=== PATIENT | female | born 1940 | race Caucasian/White ===

== ENCOUNTER → 2017-09-21 | Outpatient (CLI) | payer OTHER ==
[~2017-09-21] MED LIST: ALENDRONATE; CALCIUM; L-THYROXINE; NORCO 5-325 TA1 EACH PO; PHENERGAN 25 MG25 M1 PO
== END ==
LOC: M.MRI 09-14 08:57
DX: K31.84 Gastroparesis (principal); R11.2 Nausea with vomiting, unspecified; R63.4 Abnormal weight loss; K83.8 Other specified diseases of biliary tract; R93.5 Abnormal findings on diagnostic imaging of other abdominal regions, including retroperitoneum

== ENCOUNTER → 2017-12-16 | Outpatient (CLI) | payer OTHER | LOC: M.ULTRA 14:45 | DX: M79.605 Pain in left leg (principal) ==

== ENCOUNTER → 2018-01-07 | Outpatient (CLI) | payer OTHER | LOC: M.RAD 09:42 | DX: M19.032 Primary osteoarthritis, left wrist (principal) ==

== ENCOUNTER → 2018-04-26 | Outpatient (CLI) | payer OTHER | LOC: M.CT 07:26 | DX: I77.810 Thoracic aortic ectasia (principal); J84.10 Pulmonary fibrosis, unspecified; I70.0 Atherosclerosis of aorta; J43.9 Emphysema, unspecified; J98.4 Other disorders of lung; E03.9 Hypothyroidism, unspecified; M81.0 Age-related osteoporosis without current pathological fracture ==

== ENCOUNTER → 2018-08-19 | Outpatient (CLI) | payer OTHER | LOC: M.RAD 08-18 10:30 | DX: Z12.31 Encounter for screening mammogram for malignant neoplasm of breast (principal) ==

== ENCOUNTER 2019-08-12 21:24 | Emergency (ER) | payer OTHER ==
[~2019-08-12] VITALS: Ht 157.5 cm; Wt 45.4 kg
[~2019-08-12 21:24] MED LIST changes: +ANORO ELLIPTA1 EACH INH; +CALCIUM 600 MG1 EAC2 PO; +FLONASE 0.05%50 MCG NARES; +LEVO-T75 MCG PO; +PRILOSEC2.5 MG PO; +PROLIA60 MG/1 ML SUBQ; +SINGULAIR 10 MG10 M1 PO
[2019-08-12] MEDS ORDERED: ANORO ELLIPTA1 EACH INH (21:37)
[2019-08-12] MEDS ORDERED: VENTOLIN HFA 1818 GM INH (21:38)
[2019-08-12 22:10] LABS: ABSOLUTE BASOPHILS 0.1 thou/uL (0.0-0.2); ABSOLUTE EOSINOPHILS 0.3 thou/uL (0.0-0.7); ABSOLUTE LYMPHOCYTES 0.7 thou/uL (0.8-5.3); ABSOLUTE MONOCYTES 0.9 thou/uL (0.0-1.2); ABSOLUTE NEUTROPHILS 10.5 thou/uL (1.6-8.1); EOSINOPHILS 2.4 %; HEMATOCRIT 33.9 % (37.0-47.0); HEMOGLOBIN 11.5 gm/dL (12.0-15.0); LYMPHOCYTES 5.8 %; MCH 28.3 pg (26.0-34.0); MCHC 34.1 g/dL (28.0-37.0); MCV 82.9 fL (80.0-100.0); MONOCYTES 7.5 %; MPV 6.5 fl. (7.2-11.1); NUCLEATED RBCS 0 /100WBC; PLATELET COUNT* 428 thou/uL (150-400); POLYS 83.3 %; RBC 4.08 mil/uL (4.20-5.00); WBC 12.6 thou/uL (4.0-11.0)
[2019-08-12 22:13] LABS: CALCIUM 8.9 mg/dL (8.5-10.1); CREATININE 0.6 mg/dL (0.6-1.3); POTASSIUM 4.7 mmol/L (3.5-5.1)
[2019-08-12 22:18] LABS: ALBUMIN 3.2 g/dL (3.4-5.0); TOTAL BILIRUBIN 0.3 mg/dL (<0.1-1.0); TOTAL PROTEIN 6.2 g/dL (6.4-8.2)
[2019-08-12 22:32] LABS: URINE BILIRUBIN NEGATIVE (Negative); URINE BLOOD NEGATIVE (Negative); URINE CLARITY CLEAR; URINE COLOR YELLOW; URINE GLUCOSE-RANDOM NEGATIVE (Negative); URINE KETONES NEGATIVE (Negative); URINE LEUKOCYTES-REFLEX NEGATIVE (Negative); URINE NITRITE-REFLEX NEGATIVE (Negative); URINE PROTEIN NEGATIVE (Negative); URINE SPECIFIC GRAVITY 1.015 (1.005-1.030); URINE UROBILINOGEN 0.2 E.U./dl (0.2-1.0)
[2019-08-13] MEDS ORDERED: TRAMADOL 50 MG50 MG PO (00:20)
[2019-08-13 00:43] VITALS: BP 135/80
--- NOTE | 2019-08-13 12:25 | EKG ---
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1940 Requested By: Mera Banegas Order Number: [id number] MD: Brandon Galdamez Measurements Intervals [place] Rate: 68 P: 65 RI: 132 QRS: -39 QRSD: 93 T: 34 QT: 396 QTc: 422 Interpretive Statements Sinus rhythm Left axis deviation Minimal ST elevation, anterior leads Baseline wander in lead(s) I,III,aVR,aVL No previous ECG available for comparison Electronically Signed On 08-13-2019 12:25:43 [employer]A [employer]Y HOUSE OPERATOR by Brandon Galdamez [email or web address] <ELECTRONICALLY SIGNED> By: Brandon Galdamez MD, [facility] 08/13/19 1225 56 Brandon Galdamez MD, [facility] /EPI
== END 2019-08-13 00:47 | disposition home or self-care (01) ==
LOC: M.ERS 21:24
PROVIDERS: Emergency Medicine
DX: S52.592A Other fractures of lower end of left radius, initial encounter for closed fracture (principal); E03.9 Hypothyroidism, unspecified; M81.0 Age-related osteoporosis without current pathological fracture; Z88.2 Allergy status to sulfonamides; Z88.7 Allergy status to serum and vaccine; W18.39XA Other fall on same level, initial encounter; Y93.89 Activity, other specified; Y92.89 Other specified places as the place of occurrence of the external cause; Y99.8 Other external cause status

== ENCOUNTER → 2019-08-16 | Day surgery (SDC) | payer OTHER ==
[~2019-08-16] MED LIST changes: +ASA81BEC PO; +AZITHROMYCIN500 MG PO; +CEFDINIR300 MG PO; +TRAMADOL 50 MG50 MG PO; +VENTOLIN HFA 1818 GM INH
[2019-08-16 09:13] LABS: HEMATOCRIT 36.2 % (37.0-47.0); HEMOGLOBIN 12.2 gm/dL (12.0-15.0); MCH 27.8 pg (26.0-34.0); MCHC 33.8 g/dL (28.0-37.0); MCV 82.1 fL (80.0-100.0); MPV 6.4 fl. (7.2-11.1); RBC 4.41 mil/uL (4.20-5.00); RDW-CV 16.6 % (10.5-14.5); WBC 11.5 thou/uL (4.0-11.0)
[2019-08-16 09:18] LABS: CALCIUM 8.8 mg/dL (8.5-10.1); CREATININE 0.5 mg/dL (0.6-1.3); POTASSIUM 4.6 mmol/L (3.5-5.1)
[2019-08-16 09:28] LABS: ALBUMIN 3.3 g/dL (3.4-5.0); TOTAL BILIRUBIN 0.3 mg/dL (<0.1-1.0); TOTAL PROTEIN 6.7 g/dL (6.4-8.2)
--- NOTE | 2019-08-16 09:44 | EKG ---
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
--- NOTE | 2019-08-18 14:06 | PATH ---
[address] [address] PATHOLOGY RPT PROCEDURE Name: ROSIE RENTERIA Room: [facility]#: [id number] Admission: 08/16/19 Date of : 42 Discharge: Report #: [id number] Path Case #: [id number] [facility] Accession Number: [id number] . 01 Material submitted: . pylorus - BIOPSY PRE PYLORIC AREA SUSPECT INTESTINAL METAPLASIA . 01 Clinical history: . Nausea vomitting Suspect intestina metaplasia . 02 Diagnosis: "Biopsy prepyloric area suspect intestinal metaplasia", biopsy: - Gastric antral-type mucosa with reactive gastropathy, mild acute and chronic inflammation and intestinal metaplasia; no dysplasia seen. - Negative H. pylori immunohistochemical stain (block A1); control reacted appropriately. (CLW/db; 08/18/2019) LBQ 08/18/2019 1044 Local . 02 Electronically signed: . Radha Villareal MD, Pathologist NPI- [id number] . 01 Gross description: . Received in formalin labeled "Rosie Renteria, biopsy pre-pyloric area: suspect intestinal metaplasia," are four segments of pale fernandes soft tissue measuring 0.6 x 0.5 x 0.2 cm in aggregate dimensions and ranging from 0.3 to 0.4 cm in maximum dimension. The specimen is submitted entirely in cassette A1. (DAC; 08/17/2019) XDC/XDC 08/17/2019 1228 Local . 02 Pathologist provided ICD-10: K31.9, K29.00, K29.50 . 02 CPT . 212019, [id number] Specimen Comment: A courtesy copy of this report has been sent to [phone], [phone] Specimen Comment: [phone] Specimen Comment: Report sent to and Performed at: [address] [id number] MD Sudeep Salmeron MD Phone: [phone] Performed at: 02 [place] [address] PATHOLOGY RPT PROCEDURE Name: ROSIE RENTERIA Room: [facility]#: [id number] Admission: 08/16/19 Date of : 42 Discharge: Report #: [id number] Path Case #: [id number] [address], [place] [id number] MD King Scales MD Phone: [phone]
== END | disposition home or self-care (01) ==
LOC: M.SUR
PROVIDERS: Internal Medicine Gastroenterology
DX: K29.50 Unspecified chronic gastritis without bleeding (principal); K29.00 Acute gastritis without bleeding; K31.9 Disease of stomach and duodenum, unspecified; K44.9 Diaphragmatic hernia without obstruction or gangrene; K21.0 Gastro-esophageal reflux disease with esophagitis; J44.9 Chronic obstructive pulmonary disease, unspecified; R11.2 Nausea with vomiting, unspecified; Z86.010 Personal history of colon polyps; Z85.828 Personal history of other malignant neoplasm of skin; Z79.899 Other long term (current) drug therapy; Z88.2 Allergy status to sulfonamides; Z79.82 Long term (current) use of aspirin

== ENCOUNTER 2019-08-19 15:21 | Inpatient (IN) | payer OTHER ==
[~2019-08-19] VITALS: Ht 157.5 cm; Wt 45.8 kg
--- NOTE | ~2019-08-19 | EEG ---
[address] [address] EEG STUDY REPORT Name: NIKA RENTERIA Room: [address]#: [id number] Admission: 08/19/19 Attend Phys: Jordan Palafox MD Discharge: 08/22/19 Date of : 42 Report #: [id number] THIS REPORT FOR: //name// CC: Jordan Levin DATE OF SERVICE: 08/22/2019 This patient is being evaluated for an episode of syncope. EEG was done by placing the electrode by standard 10-20 system of electrode placement. Both referential and sequential montages were used for recording. Background activity in this patient's EEG is about 10 Hz and 30 microvolts. This patient became drowsy and that is associated with bilateral slowing. Photic stimulation was unremarkable. Throughout the record, no active epileptiform activity was noticed. IMPRESSION: This patient's EEG is within normal limit. Thank you very much for this referral. By: 0853 0910Kaiser Amor MD /nt
--- NOTE | ~2019-08-19 | CON ---
[address] [address] CONSULTATION Name: NIKA RENTERIA Room: [address] IN .R.#: [id number] Admission: 08/19/19 Attend Phys: Jordan Palafox MD Discharge: Date of : 42 Report #: [id number] THIS REPORT FOR: //name// CC: Jordan Levin DATE OF SERVICE: 08/21/2019 HISTORY OF PRESENT ILLNESS: This is a 79-year-old female patient who gives a history that this patient had falls. She had multiple falls. She does not know why she had those falls. She believes she started smoking and that is what happened. She believes smoking induces her falls. There is no history to suggest cough, syncope in this patient. Review of system indicates she has smoked for a long time, then she stopped doing it, and started again. She does have multiple injuries secondary to fall. Nobody has noticed any tonic-clonic activity. REVIEW OF SYSTEM: A 14-point review of system is carried out. She has problem with the lungs. Her oxygen saturation is low. She does have some ophthalmology problems in the baseline. She denies any ENT, cardiac symptom associated with the present symptomatology. She denies any , musculoskeletal, constitutional, dermatological, hematological, psychiatric, throat, allergic symptom associated with present symptomatology. She had some question of chest pain. She was also having some hypoxia when the patient was admitted. PAST MEDICAL HISTORY: Positive for smoking and looks like she has increasing oxygen desaturation. FAMILY HISTORY: Negative for any early age stroke. SOCIAL HISTORY: She smokes. She drank alcohol long time ago, but does not drink any alcohol now. PHYSICAL EXAMINATION: Indicates that she is alert. She is responsive. She can follow simple command. Her speech, concentration, fund of knowledge and memory is at her baseline. Cranial nerve examination 2-12 does not appear to be showing any definite abnormality. Strength, sensation, reflexes and tone is symmetrical. There is no cerebellar sign. I could not look at the patient's fundus. She does appear to have rhonchi on both sides and is somewhat short of breath. Cardiac examinations appear unremarkable. Pulses are somewhat difficult to feel. There is no edema, cyanosis or jaundice. Blood pressure is 150/92, pulse is 70, and temperature is 97.9. LABORATORY DATA: Her white count is 10.9. Her sodium is only 130. GFR is pretty good at 81. [place] [address] CONSULTATION Name: NIKA RENTERIA [place] Room: [address]#: [id number] Admission: 08/19/19 Attend Phys: Jordan Palafox MD Discharge: Date of : 42 Report #: [id number] IMPRESSION: This patient is having multiple falls. I think the cause is most likely systemic because she does appear to have hypoxia and other pulmonary problem. She also has some hyponatremia, which could have contributed to her symptoms. She is a heavy smoker. In these circumstances, TIRE LAYER problems need to be excluded. The patient says that she will not do an MRI. I can do a CT angio, but looks like she just had CTA of the chest and I hate to give contrast again. One of the option will be that await for the present testing and then if carotid Doppler is okay and there is a reasonably good picture of vertebral, we might put her on antiplatelet therapy and send her home and get an MRI and MRA as an outpatient and open MRI. The other option will be to see if GFR is still good tomorrow, we can do a CT angiogram tomorrow. I discussed this with the patient and she wants to follow this plan and we will do that. By: 1146 1440Kaiser Amor MD /nt
[~2019-08-19 15:21] MED LIST changes: -ASA81BEC PO; -AZITHROMYCIN500 MG PO; -CEFDINIR300 MG PO
[2019-08-19 15:36] VITALS: BP 125/82
[2019-08-19 16:48] LABS: HEMATOCRIT 34.9 % (37.0-47.0); HEMOGLOBIN 11.7 gm/dL (12.0-15.0); MCH 27.6 pg (26.0-34.0); MCHC 33.5 g/dL (28.0-37.0); MCV 82.2 fL (80.0-100.0); MPV 6.7 fl. (7.2-11.1); NUCLEATED RBCS 0 /100WBC; PLATELET COUNT* 488 thou/uL (150-400); RBC 4.24 mil/uL (4.20-5.00); RDW-CV 16.5 % (10.5-14.5); WBC 16.2 thou/uL (4.0-11.0)
[2019-08-19 16:57] LABS: CALCIUM 9.5 mg/dL (8.5-10.1); CREATININE 0.6 mg/dL (0.6-1.3); POTASSIUM 4.5 mmol/L (3.5-5.1)
[2019-08-19 17:01] LABS: ALBUMIN 3.3 g/dL (3.4-5.0); TOTAL BILIRUBIN 0.3 mg/dL (<0.1-1.0); TOTAL PROTEIN 6.7 g/dL (6.4-8.2)
[2019-08-19 17:15] LABS: ABSOLUTE LYMPHOCYTES 0.6 thou/uL (0.8-5.3); ABSOLUTE MONOCYTES 0.6 thou/uL (0.0-1.2); ABSOLUTE NEUTROPHILS 14.9 thou/uL (1.6-8.1)
[2019-08-19 17:16] LABS: ANISOCYTOSIS Occasional; PLATELET ESTIMATE INCREASED
[2019-08-19 17:17] LABS: OVALOCYTES 1+
[2019-08-19 17:21] LABS: BURR CELLS 1+
[2019-08-19 19:52] VITALS: BP 118/59
[2019-08-19 20:00] VITALS: BP 123/83
[2019-08-20] VITALS: BP 102/64
[2019-08-20 04:00] VITALS: BP 101/64
[2019-08-20 08:00] VITALS: BP 106/72
[2019-08-20 11:59] LABS: CALCIUM 9.5 mg/dL (8.5-10.1); CREATININE 0.7 mg/dL (0.6-1.3); MAGNESIUM 2.2 mg/dL (1.8-2.4); POTASSIUM 3.9 mmol/L (3.5-5.1)
[2019-08-20 12:07] VITALS: BP 111/71
--- NOTE | 2019-08-20 15:38 | EKG ---
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1940 Requested By: Rosalia Alexander Order Number: [id number] MD: Buck Dc Measurements Intervals [place] Rate: 72 P: 59 OK: 130 QRS: -38 QRSD: 91 T: 16 QT: 400 QTc: 438 Interpretive Statements Sinus rhythm Probable left atrial enlargement Left axis deviation Anteroseptal infarct, age indeterminate Compared to ECG 08/16/2019 09:12:38 Myocardial infarct finding now present Electronically Signed On 08-20-2019 15:37:50 DROPPER TANK STORAGE by Buck Dc [email or web address] <ELECTRONICALLY SIGNED> By: Buck Dc MD, FACC 08/20/19 1537 1640 1640 Buck Dc MD, FACC /EPI
[2019-08-20 20:20] VITALS: BP 107/71
[2019-08-21] VITALS: BP 118/73
[2019-08-21 04:52] LABS: ABSOLUTE EOSINOPHILS 0.1 thou/uL (0.0-0.7); ABSOLUTE LYMPHOCYTES 1.6 thou/uL (0.8-5.3); ABSOLUTE MONOCYTES 1.2 thou/uL (0.0-1.2); BASOPHILS 0.4 %; EOSINOPHILS 1.2 %; HEMATOCRIT 29.6 % (37.0-47.0); HEMOGLOBIN 9.9 gm/dL (12.0-15.0); LYMPHOCYTES 14.8 %; MCH 27.5 pg (26.0-34.0); MCHC 33.3 g/dL (28.0-37.0); MCV 82.4 fL (80.0-100.0); MONOCYTES 10.6 %; MPV 6.6 fl. (7.2-11.1); NUCLEATED RBCS 0 /100WBC; PLATELET COUNT* 416 thou/uL (150-400); RBC 3.59 mil/uL (4.20-5.00); RDW-CV 16.6 % (10.5-14.5); WBC 10.9 thou/uL (4.0-11.0)
[2019-08-21 05:17] LABS: URINE BILIRUBIN NEGATIVE (Negative); URINE BLOOD NEGATIVE (Negative); URINE CLARITY CLEAR; URINE COLOR YELLOW; URINE GLUCOSE-RANDOM NEGATIVE (Negative); URINE KETONES NEGATIVE (Negative); URINE LEUKOCYTES NEGATIVE (Negative); URINE NITRITE NEGATIVE (Negative); URINE PROTEIN NEGATIVE (Negative); URINE UROBILINOGEN 0.2 E.U./dl (0.2-1.0)
[2019-08-21 07:00] VITALS: BP 150/92
[2019-08-21 11:45] VITALS: BP 103/69
--- NOTE | 2019-08-21 15:38 | 2DMMODE ---
[place] [address] 2 D/M-MODE ECHOCARDIOGRAM Name: NIKA RENTERIA Room: [address] [place] .R.#: [id number] Admission: 08/19/19 Attend Phys: Jordan Palafox, Discharge: Date of : 42 Date of Service: 08/21/19 1537 Report #: [id number] THIS REPORT FOR: //name// APPROVED REPORT Study performed: 08/21/2019 13:46:11 EXAM: Comprehensive 2D, Doppler, and color-flow Echocardiogram Patient Location: Bedside BSA: 1.45 HR: 70 bpm BP: 150/92 mmHg Other Information Study Quality: Fair Indications Dyspnea 2D Dimensions IVSd: 13.78 (7-11mm) LVOT Diam: 23.88 (18-24mm) LVDd: 35.18 mm PWd: 10.13 (7-11mm) Ascending Ao: 32.69 (22-36mm) LVDs: 29.09 (25-40mm) Aortic Root: 25.47 mm Volumes Left Atrial Volume (Systole) LA ESV Index: 16.40 mL/m2 Aortic Valve AoV Peak Dayday.: 0.96 m/s AO Peak Gr.: 3.71 mmHg LVOT Max P.18 mmHg AO Mean Gr.: 2.06 mmHg LVOT Mean P.52 mmHg LVOT Max V: 0.89 m/s AO V2 VTI: 16.05 cm LVOT Mean V: 0.56 m/s NIKOLAS (VTI): 3.70 cm2 LVOT V1 VTI: 13.26 cm Mitral Valve E/A Ratio: 0.58 MV Decel. Time: 161.61 ms MV E Max Dayday.: 0.30 m/s MV PHT: 46.87 ms MVA (PHT): 4.69 [place] [address] 2 D/M-MODE ECHOCARDIOGRAM Name: NIKA RENTERIA Room: [address] IN [facility]#: [id number] Admission: 08/19/19 Attend Phys: Jordan Palafox, Discharge: Date of : 42 Date of Service: 08/21/19 1537 Report #: [id number] TDI E/Lateral E': 3.33 E/Medial E': 2.73 Medial E' Dayday.: 0.11 m/s Lateral E' Dayday.: 0.09 m/s Pulmonary Valve PV Peak Dayday.: 0.86 m/s PV Peak Gr.: 2.98 mmHg Tricuspid Valve RAP Estimate: 5.00 mmHg TR Peak Gr.: 37.80 mmHg RVSP: 42.80 mmHg PA Pressure: 42.80 mmHg Left Ventricle The left ventricle is normal size. There is normal LV segmental wall motion. There is normal left ventricular wall thickness. Left ventricular systolic function is normal. The left ventricular ejection fraction is within the normal range. LVEF is 55-60%. Grade I - abnormal relaxation pattern. Right Ventricle The right ventricle is normal size. The right ventricular systolic function is normal. Atria The left atrium size is normal. The atrial septum is aneurysmal. The right atrium size is normal. Aortic Valve The aortic valve is normal in structure. No aortic regurgitation is present. There is no aortic valvular stenosis. Mitral Valve The mitral valve is normal in structure. Mild mitral regurgitation. No evidence of mitral valve stenosis. Tricuspid Valve The tricuspid valve is normal in structure. Moderate tricuspid regurgitation. estimated pa pressure 40 mm Hg Pulmonic Valve Pulmonic valve is not well visualized. There is no pulmonic valvular regurgitation[place] [address] 2 D/M-MODE ECHOCARDIOGRAM Name: NIKA RENTERIA Room: [address]#: [id number] Admission: 08/19/19 Attend Phys: Jordan Palafox, Discharge: Date of : 42 Date of Service: 08/21/19 1537 Report #: [id number] The aortic root is normal in size. IVC is normal in size and collapses >50% with inspiration. Pericardium There is no pericardial effusion. <Conclusion> LVEF is 55-60%. Mild mitral regurgitation. Moderate tricuspid regurgitation. estimated pa pressure 40 mm Hg <ELECTRONICALLY SIGNED> By: Brandon Galdamez MD, FACC 08/21/19 1537 153 153 Brandon Galdamez MD, FACC /INF
[2019-08-21 16:39] VITALS: BP 105/68
[2019-08-21 20:00] VITALS: BP 117/77
[2019-08-22] VITALS: BP 136/85
[2019-08-22 04:00] VITALS: BP 141/44
[2019-08-22 05:13] LABS: ABSOLUTE EOSINOPHILS 0.2 thou/uL (0.0-0.7); ABSOLUTE LYMPHOCYTES 1.6 thou/uL (0.8-5.3); ABSOLUTE NEUTROPHILS 6.4 thou/uL (1.6-8.1); BASOPHILS 0.5 %; EOSINOPHILS 2.1 %; HEMATOCRIT 29.6 % (37.0-47.0); HEMOGLOBIN 10.2 gm/dL (12.0-15.0); LYMPHOCYTES 17.3 %; MCH 28.1 pg (26.0-34.0); MCHC 34.4 g/dL (28.0-37.0); MCV 81.6 fL (80.0-100.0); MONOCYTES 10.4 %; MPV 6.4 fl. (7.2-11.1); NUCLEATED RBCS 0 /100WBC; PLATELET COUNT* 422 thou/uL (150-400); POLYS 69.7 %; RBC 3.63 mil/uL (4.20-5.00); RDW-CV 16.6 % (10.5-14.5); WBC 9.2 thou/uL (4.0-11.0)
[2019-08-22 05:32] LABS: CALCIUM 8.4 mg/dL (8.5-10.1); CREATININE 0.6 mg/dL (0.6-1.3); POTASSIUM 4.3 mmol/L (3.5-5.1)
[2019-08-22 07:00] VITALS: BP 126/55
[2019-08-22] MEDS ORDERED: CEFDINIR300 MG PO (10:39)
[2019-08-22] MEDS ORDERED: AZITHROMYCIN500 MG PO (10:39)
[2019-08-22 10:40] VITALS: BP 126/55
[2019-08-22] MEDS ORDERED: ASA81BEC PO (11:33)
[2019-08-22 13:04] VITALS: BP 126/55
[2019-08-22 14:28] VITALS: BP 126/55
--- NOTE | 2019-08-22 16:00 | EKG ---
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1940 Requested By: Jordan Palafox Order Number: [id number] Reading MD: Westley Whalen Measurements Intervals [place] Rate: 84 P: -85 ND: 120 QRS: -31 QRSD: 88 T: 19 QT: 367 QTc: 434 Interpretive Statements Sinus rhythm Ventricular premature complex Left axis deviation Compared to ECG 08/19/2019 16:40:26 Ventricular premature complex(es) now present Myocardial infarct finding no longer present Electronically Signed On 08-22-2019 15:59:50 VICE PRESIDENT SALES by Westley Whalen [email or web address] <ELECTRONICALLY SIGNED> By: Westley Whalen MD, [facility] 08/22/19 1559 1229 1229 Westley Whalen MD, [facility] /EPI
== END 2019-08-22 16:00 | disposition home or self-care (01) | DRG 177 ==
LOC: M.ERS 15:21 → M.2W 18:39 → M.TBA-ER 18:39 → M.2W 19:41
PROVIDERS: Internal Medicine; Nurse Practitioner Family; ADMIT Internal Medicine
PROC: 0HQ0XZZ Repair Scalp Skin, External Approach (ICD-10-PCS; principal; 2019-08-19)
DX: J69.0 Pneumonitis due to inhalation of food and vomit (principal); J96.01 Acute respiratory failure with hypoxia; S22.32XA Fracture of one rib, left side, initial encounter for closed fracture; E87.1 Hypo-osmolality and hyponatremia; S01.81XA Laceration without foreign body of other part of head, initial encounter; W19.XXXA Unspecified fall, initial encounter; E03.9 Hypothyroidism, unspecified; M81.0 Age-related osteoporosis without current pathological fracture; F17.210 Nicotine dependence, cigarettes, uncomplicated; K21.9 Gastro-esophageal reflux disease without esophagitis; R55 Syncope and collapse; I27.20 Pulmonary hypertension, unspecified; I72.0 Aneurysm of carotid artery; Z79.899 Other long term (current) drug therapy; Z88.8 Allergy status to other drugs, medicaments and biological substances; Z88.2 Allergy status to sulfonamides; Y93.89 Activity, other specified; Z79.891 Long term (current) use of opiate analgesic; Y92.89 Other specified places as the place of occurrence of the external cause; Y99.8 Other external cause status

== ENCOUNTER → 2019-09-15 | Outpatient (CLI) | payer MEDICARE ==
[~2019-09-15] MED LIST changes: +ASA81BEC PO; +AZITHROMYCIN500 MG PO; +CEFDINIR300 MG PO
--- NOTE | 2019-09-16 19:30 | PF ---
[address] [address] PULMONARY FUNCTION REPORT Name: NIKA RENTERIA Room: [facility]#: [id number] Admission: 09/15/19 Attend Phys: Eva Bales Discharge: Date of : 42 Report #: [id number] THIS REPORT FOR: //name// CC: Eva Levin DATE OF SERVICE: 09/15/2019 PULMONARY FUNCTION TEST REPORT FEV1 to FVC ratio is 62% of predicted. FEV1 is 2.06 liters, 114% predicted. FVC is 3.34 liters, 138% predicted. Mid flows are 37% of predicted. Total lung capacity is 110% of predicted. Residual volume is 80% of predicted. Pulmonary diffusion capacity 65% of predicted. In summary, spirometry is within normal limits. There is no significant postbronchodilator change. Lung volumes are within normal limits. Pulmonary diffusion capacity is moderately reduced. <ELECTRONICALLY SIGNED> By: Goran Calderon MD 09/16/19 1930 1007 1422Goran Calderon MD /nt
== END ==
LOC: M.PUL 08:55
DX: J44.9 Chronic obstructive pulmonary disease, unspecified (principal)

== ENCOUNTER → 2019-11-09 | Outpatient (CLI) | payer MEDICARE | LOC: M.RAD 10:26 | DX: Z12.31 Encounter for screening mammogram for malignant neoplasm of breast (principal) ==